=== PATIENT | female | born 1960 | race African-American/Black ===

== ENCOUNTER 2017-10-02 16:11 | Emergency (ER) | payer OTHER ==
[~2017-10-02] VITALS: Ht 157.5 cm; Wt 72.6 kg
[~2017-10-02 16:11] MED LIST: AMLODIPINE BESY10 MG ORAL; AZITHROMYCIN250 MG ORAL; HYDROCHLOROTHIA50 MG ORAL; LOSARTAN POTASS50 MG ORAL; NKM; NORCO 5-325 TA1 EACH ORAL; PROMETHAZINE-C118 M1 ORAL
--- NOTE | 2017-10-02 17:52 | Emergency Room Report ---
History of Present Illness General Chief Complaint: Multiple Trauma/Fall Present Illness HPI Patient is a 57-year-old female with no significant past medical history care complaining of low back pain, left ankle pain, and left knee pain post fall and twisting injury of the ankle rates the pain 9 out of 10, denies radiation, has not taken any medication for pain, denies tingling/numbness. Denies any other injury. Denies chest pain, SOB, dizziness, headache, palpitations denies urinary/bowel incontinence, saddle paresthesia, Allergies: Coded Allergies: No Known Allergies (Unverified , 04/19/14) Patient History Past Medical History: see triage record Past Surgical History: none, unable to obtain Last Menstrual Period: NA Immunizations: UTD Reviewed Nursing Documentation: PMH: Agreed; PSxH: Agreed Nursing Documentation-PMH Hx Cardiac Problems: No Hx Hypertension: Yes Hx Pacemaker: No Hx Asthma: No Hx COPD: No Hx Diabetes: No Hx Cancer: No Hx Gastrointestinal Problems: No Hx Dialysis: No Hx Neurological Problems: No Hx Cerebrovascular Accident: No Hx Seizures: No Review of Systems All Other Systems: negative except mentioned in HPI Physical Exam Vital Signs Date Time Temp Pulse Resp B/P (MAP) Pulse Ox O2 Delivery O2 Flow Rate FiO2 10/02/17 16:41 98.5 78 18 146/83 96 Room Air 98.4 Sp02 EP Interpretation: reviewed, normal General Appearance: normal inspection, well appearing, no apparent distress, GCS 15 Head: normocephalic, atraumatic Eyes: bilateral eye normal inspection, bilateral eye PERRL ENT: normal ENT inspection, hearing grossly normal, normal pharynx Neck: normal inspection, full range of motion, supple Respiratory: normal inspection, chest non-tender, lungs clear, normal breath sounds, no rhonchi, no respiratory distress, no retraction Cardiovascular #1: normal inspection, normal peripheral pulses, regular rate, rhythm, no edema Cardiovascular #2: 2+ dorsalis pedis (R), 2+ dorsalis pedis (L) Gastrointestinal: normal inspection, normal bowel sounds, non tender, soft Rectal: deferred Musculoskeletal: digits/nails normal, gait/station normal, swelling - Left lateral ankle and left knee, tender - lumbar spine tender to palpation Neurologic: normal inspection, alert, oriented x3 Psychiatric: normal inspection, judgement/insight normal, memory normal Skin: normal inspection, normal color, no rash, warm/dry Lymphatic: normal inspection, no adenopathy, axilla node tender (R) Medical Decision Making PA Attestation all orders, diagnosis, treatment plans were reviewed and discussed with my supervising physician Dr. Steiner Diagnostic Impression: Primary Impression: Ankle sprain Additional Impressions: Knee contusion Low back sprain ER Course Patient is a 57-year-old female with no significant past medical history care complaining of low back pain, left ankle pain, and left knee pain post fall and twisting injury of the ankle rates the pain 9 out of 10, denies radiation, has not taken any medication for pain, denies tingling/numbness. Denies any other injury. Denies chest pain, SOB, dizziness, headache, palpitations denies urinary/bowel incontinence, saddle paresthesia, Ddx considered but are not limited to contusion of lower back, left ankle sprain , left knee sprain, ankle fracture Vital signs: are WNL, pt. is afebrile H&PE are most consistent with contusion of lower back, left ankle sprain, left knee sprain, ORDERS: lumbar spine x-ray, left ankle x-ray, left knee x-ray, naproxen 500 mg twice a day ED INTERVENTIONS: ibuprofen 600 mg DISCHARGE: At this time pt. is stable for d/c to home. Will provide printed patient care instructions, and any necessary prescriptions. Care plan and follow up instructions have been discussed with the patient prior to discharge. Other X-Ray Diagnostic Results Other X-Ray Diagnostic Results : X-Ray ordered: left ankle, left knee, lumbar spine # of Views/Limited Vs Complete: 2 View Indication: Pain EP Interpretation: Yes PA Xray: Interpretation reviewed, by supervising MD, and agrees with findings. Interpretation: no dislocation, no fractures, other - soft tissue swelling Impression: No acute disease Electronically Signed by: dorota Orourke PA-C Last Vital Signs Date Time Temp Pulse Resp B/P (MAP) Pulse Ox O2 Delivery O2 Flow Rate FiO2 10/02/17 17:29 98.5 10/02/17 16:41 78 18 146/83 96 Room Air Disposition: HOME, SELF-CARE Condition: Stable Scripts Naproxen* (NAPROXEN*) 500 Mg Tablet 500 MG ORAL TWICE A DAY for 10 Days, #20 TAB Prov: Dorota Powell 10/02/17 Patient Instructions: Ankle Sprain, Contusion, Low Back Sprain With Rehab- [facility] Additional Instructions: medications as direct, follow with orthopedic podiatrist Dorota Powell Oct 02, 2017 17:52
[2017-10-02] MEDS ORDERED: NAPROXEN500 M2 ORAL (17:53)
[2017-10-02 18:16] VITALS: BP 146/83
--- NOTE | 2017-10-03 11:47 | Diagnostic Imaging Report ---
Indication: left ankle pain Comparison: None Findings: 3 views of the left ankle obtained. No acute fracture, malalignment, periostitis, or osteochondral defects are identified. Soft tissues are unremarkable. Impression: No acute findings
--- NOTE | 2017-10-03 12:06 | Diagnostic Imaging Report ---
Indication: Knee Pain 3 views of the left knee were obtained. Findings: No acute fracture, malalignment, or joint effusion are identified. Joint space is relatively well-maintained. Impression: Negative for acute injury
--- NOTE | 2017-10-03 12:07 | Diagnostic Imaging Report ---
Indication: Back pain Comparison: None Findings: 3 views of the lumbar spine were obtained. Multilevel narrowing of intervertebral disks and associated endplate and facet osteophytes are present. No malalignment identified. No acute fracture definitely seen. Impression: Mild spondylosis. No acute injury appreciated.
== END 2017-10-02 18:15 | disposition home or self-care (01) ==
LOC: EMR 17:19
DX: S93.402A Sprain of unspecified ligament of left ankle, initial encounter (principal); S33.5XXA Sprain of ligaments of lumbar spine, initial encounter; S80.02XA Contusion of left knee, initial encounter; I10 Essential (primary) hypertension; W18.30XA Fall on same level, unspecified, initial encounter; Y92.9 Unspecified place or not applicable
CPT/HCPCS: 72020; 99284

== ENCOUNTER 2019-05-13 09:05 | Emergency (ER) | payer MEDICARE, OTHER ==
[~2019-05-13] VITALS: Ht 160 cm; Wt 72.6 kg
[~2019-05-13 09:05] MED LIST changes: +NAPROXEN500 M2 ORAL
--- NOTE | 2019-05-13 09:20 | NUR ---
ED Nurse Note: Patient came to ED d/t flu-like s/s x 4 days. Patient AxO x 4, no s/s of acute distress.
[2019-05-13 09:21] VITALS: BP 149/85
--- NOTE | 2019-05-13 09:42 | Emergency Room Report ---
History of Present Illness General Chief Complaint: Flu Like Symptoms Source: Patient Present Illness HPI The patient has been ill for 4 days. She could not sleep last night due to cough and sore throat. She rates the pain 8/10. She has been taking Vicks and [id number] cough syrup. The cough is nonproductive. She feels nauseated now. The patient vomited earlier. It was food stuff. She also has loose stool. Is been brown in color without blood. The patient is felt feverish but denies chills. No documented temperature. No chest pain, palpitations, dysuria, abdominal pain, shortness of breath, rashes, depression, anxiety, visual changes, dizziness, headache. History of hypertension. Allergies: Coded Allergies: No Known Allergies (Unverified , 04/19/14) Patient History Past Medical History: see triage record Social History: Denies: smoking Social History Narrative From home Reviewed Nursing Documentation: PMH: Agreed; PSxH: Agreed Nursing Documentation-PMH Hx Cardiac Problems: No Hx Hypertension: Yes Hx Pacemaker: No Hx Asthma: No Hx COPD: No Hx Diabetes: No Hx Cancer: No Hx Gastrointestinal Problems: No Hx Dialysis: No Hx Neurological Problems: No Hx Cerebrovascular Accident: No Hx Seizures: No Review of Systems All Other Systems: negative except mentioned in HPI Physical Exam Vital Signs Date Time Temp Pulse Resp B/P (MAP) Pulse Ox O2 Delivery O2 Flow Rate FiO2 05/13/19 09:12 97.3 100 15 149/85 (106) 98 Room Air Sp02 EP Interpretation: reviewed, normal General Appearance: well appearing, no apparent distress, GCS 15 Head: normocephalic Eyes: bilateral eye normal inspection, bilateral eye PERRL ENT: moist mucus membranes, pharyngeal erythema, tonsillar exudate Neck: full range of motion, supple Respiratory: chest non-tender, lungs clear, normal breath sounds Cardiovascular #1: regular rate, rhythm Cardiovascular #2: 2+ radial (R) Gastrointestinal: normal inspection Musculoskeletal: gait/station normal, no calf tenderness Neurologic: alert, grossly normal Psychiatric: mood/affect normal Skin: no rash, warm/dry Medical Decision Making Diagnostic Impression: Primary Impression: Strep pharyngitis Additional Impression: Nausea vomiting and diarrhea ER Course Patient presents with 4 days of upper respiratory illness with now vomiting and diarrhea. Differential includes viral syndrome, viral upper respiratory infection, strep pharyngitis with other sequela. Exam is consistent with strep pharyngitis with exudates. Patient will be treated here with Keflex, Zofran and Tylenol. (The patient is specific about wanting capsules and does not want 5-day antibiotics as her sister did not get better after a Z-Silvio.) Patient stable for outpatient observation and treatment. Last Vital Signs Date Time Temp Pulse Resp B/P (MAP) Pulse Ox O2 Delivery O2 Flow Rate FiO2 05/13/19 09:55 97.4 98 17 141/80 100 Room Air Status: improved Disposition: HOME, SELF-CARE Condition: Improved Scripts Codeine/Promethazine Hcl* (PROMETHAZINE-CODEINE SYRUP*) 118 Ml Syrup 5 ML ORAL Q6H PRN for For Cough, #60 ML 0 Refills Prov: Jung Pereira MD 05/13/19 Cephalexin* (KEFLEX*) 500 Mg Tablet 500 MG ORAL EVERY 6 HOURS, #28 CAP Prov: Jung Pereira MD 05/13/19 Ondansetron Odt* (ZOFRAN ODT*) 4 Mg Tab.rapdis 4 MG BC EVERY 8 HOURS, #6 TAB 0 Refills Prov: Jung Pereira MD 05/13/19 Jung Pereira MD May 13, 2019 09:42
[2019-05-13] MEDS ORDERED: Cephalexin 500mg cap ORAL ONE (09:45)
[2019-05-13] MEDS ORDERED: Acetaminophen 500mg (ES) tab ORAL ONE (09:45)
[2019-05-13] MEDS ORDERED: CEPHALEXIN500 M1 ORAL (09:49)
[2019-05-13] MEDS ORDERED: ONDANSETRON ODT4 MG BC (09:49)
[2019-05-13] MEDS ORDERED: PROMETHAZINE-C118 M1 ORAL (09:49)
--- NOTE | 2019-05-13 09:55 | NUR ---
ER DISCHARGE NOTE: Patient cleared for DC by Dr. Pereira. Verbalized understanding of DC instructions. ID band removed, patient walks with steady gait. All belongings taken by patient.
== END 2019-05-13 10:00 | disposition home or self-care (01) ==
LOC: EMR 10:00
DX: J02.0 Streptococcal pharyngitis (principal); R11.2 Nausea with vomiting, unspecified; R19.7 Diarrhea, unspecified; I10 Essential (primary) hypertension
CPT/HCPCS: 99282